=== PATIENT | female | born 1975 | race African-American/Black ===

== ENCOUNTER 2022-10-29 17:27 | Emergency (ER) | payer SELFPAY ==
[~2022-10-29] VITALS: Ht 170.2 cm; Wt 65.0 kg
[2022-10-29 17:28] VITALS: BP 133/68; TEMP 98.8; O2SAT 100
[2022-10-29 17:32] VITALS: PULSE 114; RESP 18
[2022-10-29 18:02] LABS: BASOPHILS % 0.5 % (0.0-2.0); EOSINOPHILS % 0.4 % (0.0-5.0); HEMATOCRIT. 34.8 % (36.0-48.0); HEMOGLOBIN. 11.5 g/dL (12.0-16.0); LYMPHOCYTES % 45.9 % (20.0-50.0); MEAN CORPUSCULAR HEMOGLOBIN 26.4 pg (28.0-32.0); MEAN CORPUSCULAR VOLUME 80.2 fL (81.0-99.0); MEAN PLATELET VOLUME 7.8 fl (7.4-10.4); MONOCYTES % 6.5 % (2.0-8.0); NEUTROPHILS % 46.7 % (40.0-76.0); PLATELET 251 x1000/uL (130-400); RED BLOOD CELL COUNT 4.34 mill/uL (4.2-5.4); RED CELL DISTRIBUTION WIDTH 15.4 % (11.6-14.6)
[2022-10-29 18:24] LABS: CHLORIDE 110 mEq/L (98-107)
== END 2022-10-29 21:09 | disposition home or self-care (01) ==
LOC: ER 17:27
DX: R11.0 Nausea (principal); R52 Pain, unspecified; I50.9 Heart failure, unspecified; J44.9 Chronic obstructive pulmonary disease, unspecified
CPT/HCPCS: 36415; 71045; 80053; 84484; 85025; 93005; 99285

== ENCOUNTER 2023-02-11 13:39 | Emergency (ER) | payer SELFPAY ==
[~2023-02-11] VITALS: Ht 167.6 cm; Wt 72.3 kg
[2023-02-11 13:47] VITALS: O2SAT 100
[2023-02-11 14:59] LABS: CLARITY URINE CLEAR (CLEAR); COLOR URINE YELLOW (YELLOW); GLUCOSE URINE NEGATIVE (NEGATIVE); KETONES URINE NEGATIVE (NEGATIVE); LEUKOCYTE ESTERASE URINE NEGATIVE (NEGATIVE); NITRITE URINE NEGATIVE (NEGATIVE); OCCULT BLOOD URINE NEGATIVE (NEGATIVE); PROTEIN URINE NEGATIVE (NEGATIVE); SPECIFIC GRAVITY URINE 1.012 (1.005-1.030); UROBILINOGEN URINE 0.2 E.U./dL (0.2-1.0)
[2023-02-11] MEDS ORDERED: PHEN-815 MT (15:36)
[2023-02-11] MEDS ORDERED: METR-167 MT (15:36)
[2023-02-11 15:57] VITALS: BP 111/76; PULSE 86; RESP 18; TEMP 98.5
== END 2023-02-11 15:57 | disposition home or self-care (01) ==
LOC: ER 13:39
DX: R30.0 Dysuria (principal); N76.0 Acute vaginitis; I50.9 Heart failure, unspecified; J44.9 Chronic obstructive pulmonary disease, unspecified
CPT/HCPCS: 81003; 81025; 99283

== ENCOUNTER 2023-02-11 19:00 | Emergency (ER) | payer SELFPAY ==
[~2023-02-11] VITALS: Ht 170.2 cm; Wt 66.0 kg
[~2023-02-11 19:00] MED LIST: METR-167 MT; PHEN-815 MT
[2023-02-11 19:11] VITALS: O2SAT 99
[2023-02-11 20:34] LABS: BASOPHILS % 0.8 % (0.0-2.0); DIFFERENTIAL COMMENT 0; EOSINOPHILS % 0.8 % (0.0-5.0); HEMATOCRIT. 31.2 % (36.0-48.0); LYMPHOCYTES % 37.8 % (20.0-50.0); MEAN CORPUSCULAR HEMOGLOBIN 24.4 pg (28.0-32.0); MEAN CORPUSCULAR VOLUME 76.2 fL (81.0-99.0); MEAN PLATELET VOLUME 7.6 fl (7.4-10.4); NEUTROPHILS % 54.6 % (40.0-76.0); PLATELET 287 x1000/uL (130-400); RED CELL DISTRIBUTION WIDTH 16.2 % (11.6-14.6); WHITE BLOOD COUNT 4.9 x1000/uL (4.5-11.0)
[2023-02-11 20:48] LABS: CHLORIDE 106 mEq/L (98-107); INDEX HEMOLYSI 1 (1-3); INDEX ICTERIC 1 (1-4); INDEX LIPEMIC 1 (1-3); POTASSIUM 3.7 mEq/L (3.5-5.1); SODIUM 140 mEq/L (136-145)
[2023-02-11 20:57] LABS: ALANINE AMINOTRANSFERASE 85 IU/L (13-61); ALBUMIN 4.3 g/dL (3.4-5.0); ASPARTATE AMINOTRANSFERASE 40 IU/L (15-37); BILIRUBIN TOTAL 0.8 mg/dL (0.1-1.0); CALCIUM 9.3 mg/dL (8.5-10.1); CARBON DIOXIDE 29 mEq/L (21-32); ETHANOL BLOOD < 10 mg/dL (<10); GLUCOSE 93 mg/dL (70-105); PROTEIN TOTAL 8.1 g/dL (6.0-8.3); UREA NITROGEN BLOOD 15 mg/dL (7-21)
[2023-02-12 03:29] LABS: CLARITY URINE CLEAR (CLEAR); COLOR URINE YELLOW (YELLOW); GLUCOSE URINE NEGATIVE (NEGATIVE); KETONES URINE NEGATIVE (NEGATIVE); LEUKOCYTE ESTERASE URINE NEGATIVE (NEGATIVE); NITRITE URINE NEGATIVE (NEGATIVE); OCCULT BLOOD URINE NEGATIVE (NEGATIVE); PROTEIN URINE NEGATIVE (NEGATIVE); SPECIFIC GRAVITY URINE 1.021 (1.005-1.030); UROBILINOGEN URINE 0.2 E.U./dL (0.2-1.0)
[2023-02-12] MEDS ORDERED: LORAZEPAM 1MG TABLET PO ONE ×2 (03:30→23:00)
[2023-02-12 04:18] LABS: *AMPHETAMINES SCREEN URINE NEGATIVE (NEGATIVE); *BARBITURATES SCREEN URINE NEGATIVE (NEGATIVE); *BENZODIAZEPINES SCREEN URINE NEGATIVE (NEGATIVE); *COCAINE SCREEN URINE NEGATIVE (NEGATIVE); CANNABINOID URINE SCREEN NEGATIVE (NEGATIVE); ECSTASY MDMA SCREEN URINE NEGATIVE (NEGATIVE); OPIATES URINE SCREEN NEGATIVE (NEGATIVE); PHENCYCLIDINE URINE SCREEN NEGATIVE (NEGATIVE)
[2023-02-12] MEDS: ARIPIPRAZOLE 5MG TABLET PO SCH (11:30)
[2023-02-12] MEDS ORDERED: DIPHENHYDRAMINE 25MG CAPSULE PO NR (22:30)
[2023-02-12] MEDS ORDERED: DIPHENHYDRAMINE 50MG CAPSULE PO ONE (22:30)
[2023-02-13] MEDS: ARIPIPRAZOLE 5MG TABLET PO SCH (10:02)
[2023-02-14] MEDS: ARIPIPRAZOLE 5MG TABLET PO SCH (11:38)
[2023-02-15] MEDS: ARIPIPRAZOLE 5MG TABLET PO SCH (09:00)
[2023-02-15 12:33] VITALS: BP 107/67; PULSE 96; RESP 16; TEMP 98.2
== END 2023-02-15 12:30 | disposition home or self-care (01) ==
LOC: ER 19:00
DX: R44.0 Auditory hallucinations (principal); I50.9 Heart failure, unspecified; Z95.0 Presence of cardiac pacemaker; Z20.822 Contact with and (suspected) exposure to COVID-19
CPT/HCPCS: 80053; 80305; 81003; 81025; 80320; 85025; 36415; 99285; 87426; C9803; Q0163; G0480

== ENCOUNTER 2023-08-01 08:17 | Inpatient (IN) | payer MEDICAID ==
[~2023-08-01] VITALS: Ht 172.7 cm; Wt 66.7 kg
[2023-08-01 08:45] VITALS: O2SAT 100
[2023-08-01 09:59] LABS: BASOPHILS % 0.8 % (0.0-2.0); DIFFERENTIAL COMMENT 0; EOSINOPHILS % 3.7 % (0.0-5.0); HEMATOCRIT. 27.2 % (36.0-48.0); HEMOGLOBIN. 8.6 g/dL (12.0-16.0); LYMPHOCYTES % 39.2 % (20.0-50.0); MEAN CORPUSCULAR HEMOGLOBIN 24.3 pg (28.0-32.0); MEAN CORPUSCULAR HGB CONC 31.7 g/dL (31.0-37.0); MEAN CORPUSCULAR VOLUME 76.7 fL (81.0-99.0); MEAN PLATELET VOLUME 7.8 fl (7.4-10.4); MONOCYTES % 10.2 % (2.0-8.0); NEUTROPHILS % 46.1 % (40.0-76.0); PLATELET 341 x1000/uL (130-400); RED BLOOD CELL COUNT 3.54 mill/uL (4.2-5.4); RED CELL DISTRIBUTION WIDTH 18.2 % (11.6-14.6); WHITE BLOOD COUNT 3.3 x1000/uL (4.5-11.0)
[2023-08-01] MEDS ORDERED: NITROGLYCERIN OINT 1GM/INCH UDPKT TD ONE (10:15)
[2023-08-01] MEDS ORDERED: FUROSEMIDE 20MG/2ML VIAL IVP ONE (10:15)
[2023-08-01 10:21] LABS: ALANINE AMINOTRANSFERASE 57 IU/L (10-49); ALBUMIN 4.2 g/dL (3.2-4.8); ASPARTATE AMINOTRANSFERASE 83 IU/L (<34); BILIRUBIN TOTAL 0.4 mg/dL (0.1-1.0); CALCIUM 8.5 mg/dL (8.7-10.4); CARBON DIOXIDE 29 mEq/L (21-32); CHLORIDE 107 mEq/L (98-107); CREATININE 0.8 mg/dL (0.6-1.0); GLUCOSE 81 mg/dL (70-105); POTASSIUM 3.7 mEq/L (3.5-5.1); PROTEIN TOTAL 6.7 g/dL (6.0-8.3); SODIUM 141 mEq/L (136-145); UREA NITROGEN BLOOD 14 mg/dL (9-23)
[2023-08-01 10:22] LABS: ETHANOL BLOOD < 10 mg/dL (<10); TROPONIN I HIGH SENSITIVITY < 4 ng/L (3.0-34)
[2023-08-01 10:28] LABS: CLARITY URINE CLEAR (CLEAR); COLOR URINE YELLOW (YELLOW); GLUCOSE URINE NEGATIVE (NEGATIVE); KETONES URINE NEGATIVE (NEGATIVE); LEUKOCYTE ESTERASE URINE NEGATIVE (NEGATIVE); NITRITE URINE NEGATIVE (NEGATIVE); OCCULT BLOOD URINE NEGATIVE (NEGATIVE); PROTEIN URINE NEGATIVE (NEGATIVE); SPECIFIC GRAVITY URINE 1.027 (1.005-1.030)
[2023-08-01 11:14] LABS: *AMPHETAMINES SCREEN URINE NEGATIVE (NEGATIVE); *BARBITURATES SCREEN URINE NEGATIVE (NEGATIVE); *BENZODIAZEPINES SCREEN URINE NEGATIVE (NEGATIVE); *COCAINE SCREEN URINE NEGATIVE (NEGATIVE); CANNABINOID URINE SCREEN NEGATIVE (NEGATIVE); ECSTASY MDMA SCREEN URINE NEGATIVE (NEGATIVE); METHADONE URINE SCREEN Neg (NEGATIVE); OPIATES URINE SCREEN NEGATIVE (NEGATIVE); PHENCYCLIDINE URINE SCREEN NEGATIVE (NEGATIVE)
[2023-08-01 12:57] LABS: TROPONIN I HIGH SENSITIVITY < 4 ng/L (3.0-34)
[2023-08-01] MEDS: FUROSEMIDE 40MG/4ML VIAL IVP ONE (18:18)
[2023-08-01] MEDS: NITROGLYCERIN OINT 1GM/INCH UDPKT TD ONE (18:18)
[2023-08-01] MEDS ORDERED: ACETAMINOPHEN 325MG TABLET PO PRN (21:45)
[2023-08-01] MEDS ORDERED: ONDANSETRON HCL 4MG/2ML INJ IV PRN (21:45)
[2023-08-01] MEDS ORDERED: NALOXONE HCL 0.4MG/ML VIAL IV PRN (22:00)
[2023-08-01 22:22] LABS: TROPONIN I HIGH SENSITIVITY < 4 ng/L (3.0-34)
[2023-08-01 23:14] LABS: IRON 96 ug/dL (50-170); TOTAL IRON BINDING CAPACITY 293 ug/dl (250-425)
[2023-08-01] MEDS: ENOXAPARIN 40MG/0.4ML SYR SUBCUT SCH (23:51)
[2023-08-02] MEDS: HYDROCODONE/ACETAMINOPHEN 5/325MG TABLET PO PRN (00:07)
[2023-08-02 06:14] LABS: DIFFERENTIAL COMMENT 1; HEMATOCRIT. 24.8 % (36.0-48.0); MEAN CORPUSCULAR HEMOGLOBIN 24.2 pg (28.0-32.0); MEAN CORPUSCULAR HGB CONC 32.3 g/dL (31.0-37.0); MEAN CORPUSCULAR VOLUME 74.8 fL (81.0-99.0); PLATELET 304 x1000/uL (130-400); RED BLOOD CELL COUNT 3.31 mill/uL (4.2-5.4); RED CELL DISTRIBUTION WIDTH 18.1 % (11.6-14.6); WHITE BLOOD COUNT 3.3 x1000/uL (4.5-11.0)
[2023-08-02 06:31] LABS: ALANINE AMINOTRANSFERASE 39 IU/L (10-49); ALBUMIN 3.3 g/dL (3.2-4.8); ASPARTATE AMINOTRANSFERASE 53 IU/L (<34); BILIRUBIN DIRECT 0.1 mg/dL (<=3.0); BILIRUBIN TOTAL 0.5 mg/dL (0.1-1.0); CALCIUM 7.8 mg/dL (8.7-10.4); CARBON DIOXIDE 29 mEq/L (21-32); CHLORIDE 107 mEq/L (98-107); CHOLESTEROL 159 mg/dL (<200); CREATININE 0.7 mg/dL (0.6-1.0); GLUCOSE 82 mg/dL (70-105); HDL CHOLESTEROL 46 mg/dL (>65); LDL CHOLESTEROL 92 mg/dL (5-100); PHOSPHORUS 3.6 mg/dL (2.5-4.9); POTASSIUM 3.6 mEq/L (3.5-5.1); PROTEIN TOTAL 5.3 g/dL (6.0-8.3); SODIUM 139 mEq/L (136-145); T4 FREE 0.87 ng/dL (0.89-1.76); THYROID STIMULATING HORMONE 0.62 uIU/mL (0.55-4.78); TRIGLYCERIDE 111 mg/dL (0-150); UREA NITROGEN BLOOD 11 mg/dL (9-23)
[2023-08-02 06:41] LABS: TROPONIN I HIGH SENSITIVITY < 4 ng/L (3.0-34)
[2023-08-02 08:00] VITALS: BP 98/67; PULSE 77; RESP 18; TEMP 97.3
[2023-08-02 08:08] VITALS: BP 96/60; PULSE 82; RESP 14; TEMP 98.4
[2023-08-02 08:12] LABS: PLATELET ESTIMATE NORMAL
[2023-08-02] MEDS: FUROSEMIDE 40MG/4ML VIAL IVP SCH (09:00)
[2023-08-02] MEDS: PANTOPRAZOLE SODIUM 40 MG/VIAL IV SCH (09:00)
[2023-08-19] MEDS ORDERED: MIDO10TA MT (10:07)
[2023-08-20] MEDS ORDERED: MECL-299 MT (10:24)
[2023-08-30] MEDS ORDERED: APIX5TAB PO (11:34)
[2023-08-30] MEDS ORDERED: BUSP10TA4 PO (11:34)
[2023-08-30] MEDS ORDERED: FURO40TA5 PO (11:34)
[2023-08-30] MEDS ORDERED: BUPR100T13 PO (11:34)
[2023-08-30] MEDS ORDERED: ARIP10TA56 PO (11:35)
[2023-08-30] MEDS ORDERED: TRAZ-251 PO (11:35)
[2023-09-13] MEDS ORDERED: LIP40 PO ×2 (06:57→14:09)
[2023-09-13] MEDS ORDERED: MECL-299 MT ×2 (06:57→14:09)
[2023-09-13] MEDS ORDERED: FERR325T6 MT ×2 (06:57→14:09)
[2023-09-13] MEDS ORDERED: ASPI-1406 PO ×2 (06:57→14:09)
[2023-09-13] MEDS ORDERED: APIX5TAB PO ×2 (06:57→14:09)
[2023-09-13] MEDS ORDERED: MIDO10TA MT ×2 (06:57→14:09)
[2023-09-13] MEDS ORDERED: FURO40TA5 PO ×2 (06:57→14:09)
[2023-09-14] MEDS ORDERED: NITR-87 MT (08:20)
== END 2023-08-02 13:10 | disposition left against medical advice (07) | DRG 203 ==
LOC: ER 08:17 → 7WST 09:34 → EDBEDREQ 09:50
PROVIDERS: ADMIT Internal Medicine; ATTEND Internal Medicine
DX: M94.0 Chondrocostal junction syndrome [Tietze] (principal); I50.33 Acute on chronic diastolic (congestive) heart failure; I11.0 Hypertensive heart disease with heart failure; D64.9 Anemia, unspecified; Z53.29 Procedure and treatment not carried out because of patient's decision for other reasons; Z95.0 Presence of cardiac pacemaker; Z82.49 Family history of ischemic heart disease and other diseases of the circulatory system; R06.03 Acute respiratory distress
CPT/HCPCS: 36415; 71045; 80048; 80053; 80061; 80076; 80305; 80320; 81003; 83540; 83550; 83735; 83880; 84100; 84439; 84443; 84484; 85025; 93005; 93970; 99285; C9113; J1650; J1940; G0480

== ENCOUNTER 2023-08-03 03:00 | Emergency (ER) | payer MEDICAID ==
[~2023-08-03] VITALS: Ht 177.8 cm; Wt 80.0 kg
[2023-08-03 03:03] VITALS: BP 98/65; PULSE 117; RESP 18; TEMP 98.4; O2SAT 100
[2023-08-03 04:44] LABS: BASOPHILS % 0.7 % (0.0-2.0); DIFFERENTIAL COMMENT 0; EOSINOPHILS % 1.8 % (0.0-5.0); HEMATOCRIT. 25.8 % (36.0-48.0); HEMOGLOBIN. 8.3 g/dL (12.0-16.0); LYMPHOCYTES % 34.8 % (20.0-50.0); MEAN CORPUSCULAR HEMOGLOBIN 24.1 pg (28.0-32.0); MEAN CORPUSCULAR VOLUME 75.5 fL (81.0-99.0); MEAN PLATELET VOLUME 7.3 fl (7.4-10.4); MONOCYTES % 9.8 % (2.0-8.0); NEUTROPHILS % 52.9 % (40.0-76.0); PLATELET 344 x1000/uL (130-400); RED BLOOD CELL COUNT 3.42 mill/uL (4.2-5.4); RED CELL DISTRIBUTION WIDTH 18.7 % (11.6-14.6); WHITE BLOOD COUNT 3.9 x1000/uL (4.5-11.0)
[2023-08-03 05:05] LABS: ALANINE AMINOTRANSFERASE 72 IU/L (10-49); ALBUMIN 4.4 g/dL (3.2-4.8); ASPARTATE AMINOTRANSFERASE 88 IU/L (<34); BILIRUBIN TOTAL 0.4 mg/dL (0.1-1.0); CALCIUM 8.4 mg/dL (8.7-10.4); CARBON DIOXIDE 27 mEq/L (21-32); CHLORIDE 105 mEq/L (98-107); CREATININE 0.9 mg/dL (0.6-1.0); GLUCOSE 103 mg/dL (70-105); POTASSIUM 3.4 mEq/L (3.5-5.1); PROTEIN TOTAL 7.2 g/dL (6.0-8.3); SODIUM 140 mEq/L (136-145); UREA NITROGEN BLOOD 15 mg/dL (9-23)
[2023-08-03 09:22] LABS: TROPONIN I HIGH SENSITIVITY < 4 ng/L (3.0-34)
[2023-08-03 09:23] LABS: CLARITY URINE CLEAR (CLEAR); COLOR URINE YELLOW (YELLOW); GLUCOSE URINE NEGATIVE (NEGATIVE); KETONES URINE TRACE (NEGATIVE); LEUKOCYTE ESTERASE URINE NEGATIVE (NEGATIVE); NITRITE URINE NEGATIVE (NEGATIVE); OCCULT BLOOD URINE NEGATIVE (NEGATIVE); PH URINE 6.5 (4.5-8.0); PROTEIN URINE TRACE (NEGATIVE); SPECIFIC GRAVITY URINE 1.033 (1.005-1.030)
[2023-08-03 09:34] LABS: BACTERIA URINE 1+; RBC URINE 0-2 /hpf (0-2); SQUAMOUS EPITHELIAL CELL URINE 1+ /lpf (RARE/1+); WBC URINE 0-2 /hpf (0-2); YEAST URINE NONE SEEN
== END 2023-08-03 14:34 | disposition home or self-care (01) ==
LOC: ER 03:00
DX: R60.0 Localized edema (principal); I50.9 Heart failure, unspecified; Z98.890 Other specified postprocedural states
CPT/HCPCS: 36415; 71045; 80053; 81003; 83880; 84484; 85025; 93005; 93970; 99285

== ENCOUNTER 2023-08-27 15:01 | Emergency (ER) | payer MEDICAID ==
[~2023-08-27] VITALS: Ht 170.2 cm; Wt 64.0 kg
[~2023-08-27 15:01] MED LIST changes: +MECL-299 MT; -METR-167 MT; +MIDO10TA MT; -PHEN-815 MT
[2023-08-27 15:11] VITALS: TEMP 98.4; O2SAT 100
[2023-08-27 17:14] LABS: BASOPHILS % 0.6 % (0.0-2.0); DIFFERENTIAL COMMENT 0; EOSINOPHILS % 1.1 % (0.0-5.0); HEMATOCRIT. 29.3 % (36.0-48.0); HEMOGLOBIN. 9.4 g/dL (12.0-16.0); LYMPHOCYTES % 26.4 % (20.0-50.0); MEAN CORPUSCULAR HEMOGLOBIN 25.3 pg (28.0-32.0); MEAN CORPUSCULAR HGB CONC 32.2 g/dL (31.0-37.0); MEAN CORPUSCULAR VOLUME 78.5 fL (81.0-99.0); MEAN PLATELET VOLUME 8.3 fl (7.4-10.4); NEUTROPHILS % 63.9 % (40.0-76.0); PLATELET 229 x1000/uL (130-400); RED BLOOD CELL COUNT 3.73 mill/uL (4.2-5.4); RED CELL DISTRIBUTION WIDTH 20.2 % (11.6-14.6); WHITE BLOOD COUNT 6.1 x1000/uL (4.5-11.0)
[2023-08-27 17:20] LABS: CHLORIDE 108 mEq/L (98-107); POTASSIUM 3.7 mEq/L (3.5-5.1); SODIUM 140 mEq/L (136-145)
[2023-08-27 17:21] LABS: CARBON DIOXIDE 25 mEq/L (21-32)
[2023-08-27 17:22] LABS: CALCIUM 9.4 mg/dL (8.7-10.4)
[2023-08-27 17:27] LABS: CREATININE 0.9 mg/dL (0.6-1.0); GLUCOSE 90 mg/dL (70-105); UREA NITROGEN BLOOD 15 mg/dL (9-23)
[2023-08-27] MEDS: ACETAMINOPHEN 325MG TABLET PO STA (21:45)
[2023-08-27 22:06] LABS: CLARITY URINE CLEAR (CLEAR); COLOR URINE YELLOW (YELLOW); GLUCOSE URINE NEGATIVE (NEGATIVE); KETONES URINE TRACE (NEGATIVE); LEUKOCYTE ESTERASE URINE NEGATIVE (NEGATIVE); NITRITE URINE NEGATIVE (NEGATIVE); OCCULT BLOOD URINE NEGATIVE (NEGATIVE); PH URINE 5.5 (4.5-8.0); PROTEIN URINE NEGATIVE (NEGATIVE); SPECIFIC GRAVITY URINE 1.033 (1.005-1.030); UROBILINOGEN URINE 0.2 E.U./dL (0.2-1.0)
[2023-08-27] MEDS ORDERED: FURO-152 PO (22:25)
[2023-08-27 22:46] VITALS: BP 125/74; PULSE 91; RESP 18
[2023-08-30] MEDS ORDERED: FURO40TA5 PO (11:34)
[2023-08-30] MEDS ORDERED: APIX5TAB PO (11:34)
[2023-08-30] MEDS ORDERED: BUSP10TA4 PO (11:34)
[2023-08-30] MEDS ORDERED: BUPR100T13 PO (11:34)
[2023-08-30] MEDS ORDERED: TRAZ-251 PO (11:35)
[2023-08-30] MEDS ORDERED: ARIP10TA56 PO (11:35)
== END 2023-08-27 22:45 | disposition home or self-care (01) ==
LOC: ER 15:01
DX: R51.9 Headache, unspecified (principal); I50.22 Chronic systolic (congestive) heart failure; Z76.0 Encounter for issue of repeat prescription
CPT/HCPCS: 36415; 80048; 81003; 85025; 99283

== ENCOUNTER 2023-08-28 06:48 | Emergency (ER) | payer MEDICAID ==
[~2023-08-28 06:48] MED LIST changes: +FURO-152 PO
[2023-08-30] MEDS ORDERED: APIX5TAB PO (11:34)
[2023-08-30] MEDS ORDERED: FURO40TA5 PO (11:34)
[2023-08-30] MEDS ORDERED: BUSP10TA4 PO (11:34)
[2023-08-30] MEDS ORDERED: BUPR100T13 PO (11:34)
[2023-08-30] MEDS ORDERED: ARIP10TA56 PO (11:35)
[2023-08-30] MEDS ORDERED: TRAZ-251 PO (11:35)
== END 2023-08-28 08:28 | disposition left against medical advice (07) ==
LOC: ER 06:48
DX: R42 Dizziness and giddiness (principal); Z53.21 Procedure and treatment not carried out due to patient leaving prior to being seen by health care provider

== ENCOUNTER 2023-08-30 22:11 | Emergency (ER) | payer MEDICAID ==
[~2023-08-30] VITALS: Ht 170.2 cm; Wt 64.8 kg
[~2023-08-30 22:11] MED LIST changes: +APIX5TAB PO; +ARIP10TA56 PO; +BUPR100T13 PO; +BUSP10TA4 PO; +FURO40TA5 PO; +TRAZ-251 PO
[2023-08-30 22:25] VITALS: O2SAT 100
[2023-08-31] MEDS ORDERED: PERM60CR4 TP (03:52)
[2023-08-31 04:25] VITALS: BP 109/58; PULSE 88; RESP 14; TEMP 98.4
[2023-08-31] MEDS ORDERED: FERR325T6 MT (23:30)
[2023-08-31] MEDS ORDERED: PERM59LI8 TP (23:30)
[2023-09-01] MEDS ORDERED: NITR-87 MT (08:58)
[2023-09-01] MEDS ORDERED: PERM60CR4 TP (08:58)
== END 2023-08-31 04:55 | disposition home or self-care (01) ==
LOC: ER 22:11
DX: R51.9 Headache, unspecified (principal); I50.9 Heart failure, unspecified
CPT/HCPCS: 99282

== ENCOUNTER 2023-08-31 07:51 | Emergency (ER) | payer MEDICAID ==
[~2023-08-31] VITALS: Ht 167.6 cm; Wt 64.0 kg
[~2023-08-31 07:51] MED LIST changes: -FURO-152 PO; +PERM60CR4 TP
[2023-08-31 08:00] VITALS: BP 112/60; PULSE 72; RESP 18; TEMP 98.6; O2SAT 100
[2023-08-31] MEDS ORDERED: MECLIZINE 25MG TABLET PO ONE (10:30)
[2023-08-31] MEDS: ACETAMINOPHEN 325MG TABLET PO ONE (11:54)
[2023-08-31] MEDS: MECLIZINE 12.5MG TABLET PO NR (11:54)
[2023-08-31] MEDS ORDERED: FERR325T6 MT (23:30)
[2023-08-31] MEDS ORDERED: PERM59LI8 TP (23:30)
[2023-09-01] MEDS ORDERED: PERM60CR4 TP (08:58)
[2023-09-01] MEDS ORDERED: NITR-87 MT (08:58)
[2023-09-13] MEDS ORDERED: FERR325T6 MT ×2 (06:57→14:09)
[2023-09-13] MEDS ORDERED: LIP40 PO ×2 (06:57→14:09)
[2023-09-13] MEDS ORDERED: FURO40TA5 PO ×2 (06:57→14:09)
[2023-09-13] MEDS ORDERED: ASPI-1406 PO ×2 (06:57→14:09)
[2023-09-13] MEDS ORDERED: MECL-299 MT ×2 (06:57→14:09)
[2023-09-13] MEDS ORDERED: APIX5TAB PO ×2 (06:57→14:09)
[2023-09-13] MEDS ORDERED: MIDO10TA MT ×2 (06:57→14:09)
[2023-09-14] MEDS ORDERED: NITR-87 MT (08:20)
== END 2023-08-31 13:37 | disposition home or self-care (01) ==
LOC: ER 07:51
DX: R51.9 Headache, unspecified (principal); R42 Dizziness and giddiness; I50.9 Heart failure, unspecified
CPT/HCPCS: 99283; 81025; 93005; J8597

== ENCOUNTER 2023-08-31 21:12 | Emergency (ER) | payer MEDICAID ==
[~2023-08-31] VITALS: Ht 170.2 cm; Wt 65.0 kg
[~2023-08-31 21:12] MED LIST changes: +FURO-152 PO
[2023-08-31 21:22] VITALS: BP 107/73; PULSE 104; RESP 18; TEMP 98.3; O2SAT 100
[2023-08-31 23:13] LABS: BASOPHILS % 0.5 % (0.0-2.0); DIFFERENTIAL COMMENT 0; EOSINOPHILS % 2.3 % (0.0-5.0); HEMATOCRIT. 29.1 % (36.0-48.0); HEMOGLOBIN. 9.6 g/dL (12.0-16.0); LYMPHOCYTES % 29.8 % (20.0-50.0); MEAN CORPUSCULAR HEMOGLOBIN 25.7 pg (28.0-32.0); MEAN CORPUSCULAR VOLUME 77.8 fL (81.0-99.0); MEAN PLATELET VOLUME 7.6 fl (7.4-10.4); MONOCYTES % 7.8 % (2.0-8.0); NEUTROPHILS % 59.6 % (40.0-76.0); PLATELET 235 x1000/uL (130-400); RED BLOOD CELL COUNT 3.74 mill/uL (4.2-5.4); RED CELL DISTRIBUTION WIDTH 20.2 % (11.6-14.6); WHITE BLOOD COUNT 4.5 x1000/uL (4.5-11.0)
[2023-08-31 23:19] LABS: CHLORIDE 109 mEq/L (98-107); POTASSIUM 3.2 mEq/L (3.5-5.1); SODIUM 143 mEq/L (136-145)
[2023-08-31 23:20] LABS: CALCIUM 9.9 mg/dL (8.7-10.4); CARBON DIOXIDE 27 mEq/L (21-32)
[2023-08-31 23:25] LABS: CREATININE 0.8 mg/dL (0.6-1.0); GLUCOSE 79 mg/dL (70-105); UREA NITROGEN BLOOD 15 mg/dL (9-23)
[2023-08-31 23:27] LABS: ALANINE AMINOTRANSFERASE 55 IU/L (10-49); ALBUMIN 4.8 g/dL (3.2-4.8); ASPARTATE AMINOTRANSFERASE 34 IU/L (<34); BILIRUBIN DIRECT 0.2 mg/dL (<=3.0); BILIRUBIN TOTAL 0.8 mg/dL (0.1-1.0); PROTEIN TOTAL 7.6 g/dL (6.0-8.3)
[2023-08-31] MEDS ORDERED: PERM59LI8 TP (23:30)
[2023-08-31] MEDS ORDERED: FERR325T6 MT (23:30)
[2023-09-01] MEDS ORDERED: PERM60CR4 TP (08:58)
[2023-09-01] MEDS ORDERED: NITR-87 MT (08:58)
== END 2023-09-01 00:35 | disposition home or self-care (01) ==
LOC: ER 21:24
DX: S00.06XA Insect bite (nonvenomous) of scalp, initial encounter (principal); D50.9 Iron deficiency anemia, unspecified; Z79.899 Other long term (current) drug therapy; Z98.890 Other specified postprocedural states; X58.XXXA Exposure to other specified factors, initial encounter; Y93.89 Activity, other specified; Y92.89 Other specified places as the place of occurrence of the external cause; Y99.8 Other external cause status
CPT/HCPCS: 36415; 80048; 80076; 85025; 99283

== ENCOUNTER 2023-09-01 01:07 | Emergency (ER) | payer MEDICAID ==
[~2023-09-01] VITALS: Ht 170.2 cm; Wt 65.0 kg
[~2023-09-01 01:07] MED LIST changes: +FERR325T6 MT; +PERM59LI8 TP
[2023-09-01 01:41] VITALS: O2SAT 100
[2023-09-01] MEDS ORDERED: NITR-87 MT (08:58)
[2023-09-01] MEDS ORDERED: PERM60CR4 TP (08:58)
[2023-09-01 09:25] VITALS: BP 112/78; PULSE 88; RESP 18; TEMP 98.7
== END 2023-09-01 09:30 | disposition home or self-care (01) ==
LOC: ER 01:07
DX: I50.9 Heart failure, unspecified (principal); Z76.0 Encounter for issue of repeat prescription; Z79.899 Other long term (current) drug therapy; Z98.890 Other specified postprocedural states
CPT/HCPCS: 99281

== ENCOUNTER 2023-09-09 19:14 | Emergency (ER) | payer MEDICAID ==
[~2023-09-09] VITALS: Ht 170.2 cm; Wt 71.5 kg
[~2023-09-09 19:14] MED LIST changes: -FURO-152 PO; +NITR-87 MT
[2023-09-09 19:32] VITALS: TEMP 97.4; O2SAT 100
[2023-09-10 00:20] LABS: BASOPHILS % 0.6 % (0.0-2.0); DIFFERENTIAL COMMENT 0; EOSINOPHILS % 3.4 % (0.0-5.0); HEMATOCRIT. 25.5 % (36.0-48.0); HEMOGLOBIN. 8.2 g/dL (12.0-16.0); LYMPHOCYTES % 40.3 % (20.0-50.0); MEAN CORPUSCULAR HEMOGLOBIN 25.4 pg (28.0-32.0); MEAN CORPUSCULAR HGB CONC 32.3 g/dL (31.0-37.0); MEAN CORPUSCULAR VOLUME 78.8 fL (81.0-99.0); MEAN PLATELET VOLUME 7.3 fl (7.4-10.4); MONOCYTES % 9.3 % (2.0-8.0); NEUTROPHILS % 46.4 % (40.0-76.0); PLATELET 273 x1000/uL (130-400); RED BLOOD CELL COUNT 3.23 mill/uL (4.2-5.4); RED CELL DISTRIBUTION WIDTH 20.1 % (11.6-14.6); WHITE BLOOD COUNT 4.3 x1000/uL (4.5-11.0)
[2023-09-10 00:23] LABS: CHLORIDE 108 mEq/L (98-107); POTASSIUM 3.2 mEq/L (3.5-5.1); SODIUM 144 mEq/L (136-145)
[2023-09-10 00:24] LABS: CARBON DIOXIDE 28 mEq/L (21-32)
[2023-09-10 00:29] LABS: CREATININE 0.9 mg/dL (0.6-1.0); GLUCOSE 64 mg/dL (70-105); UREA NITROGEN BLOOD 10 mg/dL (9-23)
[2023-09-10 00:31] LABS: ALANINE AMINOTRANSFERASE 29 IU/L (10-49); ALBUMIN 4.1 g/dL (3.2-4.8); ASPARTATE AMINOTRANSFERASE 28 IU/L (<34); BILIRUBIN DIRECT 0.2 mg/dL (<=3.0); BILIRUBIN TOTAL 0.7 mg/dL (0.1-1.0); PROTEIN TOTAL 6.4 g/dL (6.0-8.3)
[2023-09-10] MEDS ORDERED: TOLN108P2 TP (01:08)
[2023-09-10] MEDS: POTASSIUM CHLORIDE 20MEQ/PACKET PO ONE (01:28)
[2023-09-10 01:34] VITALS: BP 117/71; PULSE 96; RESP 18
[2023-09-10] MEDS ORDERED: TOLNAFTATE 1% CREAM 15GM TOP SCH (09:00)
[2023-09-10] MEDS ORDERED: FURO40TA5 MT (18:49)
[2023-09-13] MEDS ORDERED: MECL-299 MT ×2 (06:57→14:09)
[2023-09-13] MEDS ORDERED: FURO40TA5 PO ×2 (06:57→14:09)
[2023-09-13] MEDS ORDERED: ASPI-1406 PO ×2 (06:57→14:09)
[2023-09-13] MEDS ORDERED: FERR325T6 MT ×2 (06:57→14:09)
[2023-09-13] MEDS ORDERED: LIP40 PO ×2 (06:57→14:09)
[2023-09-13] MEDS ORDERED: APIX5TAB PO ×2 (06:57→14:09)
[2023-09-13] MEDS ORDERED: MIDO10TA MT ×2 (06:57→14:09)
[2023-09-14] MEDS ORDERED: NITR-87 MT (08:20)
== END 2023-09-10 01:38 | disposition home or self-care (01) ==
LOC: ER 19:14
DX: R60.0 Localized edema (principal); B35.3 Tinea pedis; I50.9 Heart failure, unspecified; Z79.899 Other long term (current) drug therapy
CPT/HCPCS: 36415; 80048; 80076; 85025; 99283

== ENCOUNTER 2023-09-15 20:39 | Emergency (ER) | payer MEDICAID ==
[~2023-09-15] VITALS: Ht 170.2 cm; Wt 63.0 kg
[~2023-09-15 20:39] MED LIST changes: +ASPI-1406 PO; +LIP40 PO; -PERM59LI8 TP; -PERM60CR4 TP
[2023-09-15 21:06] VITALS: BP 106/77; TEMP 99.2; O2SAT 99
[2023-09-15 21:53] VITALS: PULSE 118; RESP 20
[2023-09-15 22:53] LABS: BASOPHILS % 0.8 % (0.0-2.0); DIFFERENTIAL COMMENT 0; EOSINOPHILS % 2.4 % (0.0-5.0); HEMATOCRIT. 35.7 % (36.0-48.0); HEMOGLOBIN. 11.8 g/dL (12.0-16.0); LYMPHOCYTES % 30.6 % (20.0-50.0); MEAN CORPUSCULAR HEMOGLOBIN 25.7 pg (28.0-32.0); MEAN CORPUSCULAR HGB CONC 32.9 g/dL (31.0-37.0); MEAN CORPUSCULAR VOLUME 78.2 fL (81.0-99.0); MEAN PLATELET VOLUME 7.5 fl (7.4-10.4); MONOCYTES % 5.9 % (2.0-8.0); NEUTROPHILS % 60.3 % (40.0-76.0); PLATELET 364 x1000/uL (130-400); RED BLOOD CELL COUNT 4.57 mill/uL (4.2-5.4); RED CELL DISTRIBUTION WIDTH 19.9 % (11.6-14.6); WHITE BLOOD COUNT 5.9 x1000/uL (4.5-11.0)
[2023-09-15 23:01] LABS: POTASSIUM 3.5 mEq/L (3.5-5.1)
[2023-09-15 23:03] LABS: CALCIUM 9.4 mg/dL (8.7-10.4)
[2023-09-15 23:05] LABS: HCG SCREEN NEGATIVE
[2023-09-15 23:07] LABS: CREATININE 1.2 mg/dL (0.6-1.0)
[2023-09-16] MEDS ORDERED: NAPR-1176 MT (01:12)
[2023-09-16] MEDS ORDERED: MECL-217 MT (01:12)
== END 2023-09-16 01:36 | disposition home or self-care (01) ==
LOC: ER 20:39
DX: R42 Dizziness and giddiness (principal); Z00.00 Encounter for general adult medical examination without abnormal findings; Z79.899 Other long term (current) drug therapy
CPT/HCPCS: 36415; 80048; 84703; 85025; 99283

== ENCOUNTER 2023-09-16 01:37 | Emergency (ER) | payer MEDICAID ==
[~2023-09-16] VITALS: Ht 170.2 cm; Wt 65.0 kg
[~2023-09-16 01:37] MED LIST changes: +MECL-217 MT; +NAPR-1176 MT
[2023-09-16 06:14] LABS: BASOPHILS % 0.3 % (0.0-2.0); DIFFERENTIAL COMMENT 0; EOSINOPHILS % 2.2 % (0.0-5.0); HEMATOCRIT. 33.9 % (36.0-48.0); HEMOGLOBIN. 11.2 g/dL (12.0-16.0); LYMPHOCYTES % 31.2 % (20.0-50.0); MEAN CORPUSCULAR HEMOGLOBIN 25.9 pg (28.0-32.0); MEAN CORPUSCULAR HGB CONC 32.9 g/dL (31.0-37.0); MEAN CORPUSCULAR VOLUME 78.7 fL (81.0-99.0); MEAN PLATELET VOLUME 7.8 fl (7.4-10.4); MONOCYTES % 6.7 % (2.0-8.0); NEUTROPHILS % 59.6 % (40.0-76.0); PLATELET 358 x1000/uL (130-400); RED BLOOD CELL COUNT 4.31 mill/uL (4.2-5.4); RED CELL DISTRIBUTION WIDTH 20.6 % (11.6-14.6); WHITE BLOOD COUNT 5.8 x1000/uL (4.5-11.0)
[2023-09-16 06:26] LABS: CHLORIDE 101 mEq/L (98-107); POTASSIUM 3.5 mEq/L (3.5-5.1); SODIUM 137 mEq/L (136-145)
[2023-09-16 06:27] LABS: CALCIUM 9.7 mg/dL (8.7-10.4); CARBON DIOXIDE 28 mEq/L (21-32)
[2023-09-16 06:32] LABS: CREATININE 1.1 mg/dL (0.6-1.0); GLUCOSE 83 mg/dL (70-105); UREA NITROGEN BLOOD 22 mg/dL (9-23)
[2023-09-16 06:34] LABS: ALANINE AMINOTRANSFERASE 33 IU/L (10-49); ASPARTATE AMINOTRANSFERASE 40 IU/L (<34); BILIRUBIN TOTAL 0.7 mg/dL (0.1-1.0); PROTEIN TOTAL 8.2 g/dL (6.0-8.3)
[2023-09-16 06:38] LABS: HCG SCREEN NEGATIVE
[2023-09-16 07:54] VITALS: BP 117/82; PULSE 98; RESP 18; TEMP 98.7
[2023-09-16 07:59] LABS: CLARITY URINE CLEAR (CLEAR); COLOR URINE YELLOW (YELLOW); GLUCOSE URINE NEGATIVE (NEGATIVE); KETONES URINE NEGATIVE (NEGATIVE); LEUKOCYTE ESTERASE URINE TRACE (NEGATIVE); NITRITE URINE NEGATIVE (NEGATIVE); OCCULT BLOOD URINE NEGATIVE (NEGATIVE); PROTEIN URINE NEGATIVE (NEGATIVE); SPECIFIC GRAVITY URINE 1.031 (1.005-1.030)
[2023-09-16 09:07] LABS: BACTERIA URINE 2+; SQUAMOUS EPITHELIAL CELL URINE 2+ /lpf (RARE/1+)
[2023-09-16 09:08] LABS: RBC URINE NONE SEEN /hpf (0-2); WBC URINE 0-2 /hpf (0-2); YEAST URINE RARE
== END 2023-09-16 10:52 | disposition home or self-care (01) ==
LOC: ER 01:37
DX: R51.9 Headache, unspecified (principal); I50.32 Chronic diastolic (congestive) heart failure; Z79.899 Other long term (current) drug therapy
CPT/HCPCS: 36415; 80053; 81003; 82962; 84703; 85025; 93005; 99284